=== PATIENT | female | born 1995 | race Caucasian/White ===

== ENCOUNTER → 2021-06-22 | Outpatient (CLI) | payer OTHER ==
--- NOTE | 2021-06-22 10:26 | US ---
EXAMINATION TYPE: US OB >= 14 wk fetus DATE OF EXAM: 06/22/2021 COMPARISON: None CLINICAL HISTORY: O36.62X0 LARGE FOR DATES Large for dates. . TECHNIQUE: Transabdominal (TA) GESTATIONAL AGE / DATING Physician Established: (25 weeks/0 days) EDC: 10/05/2021 Dates by LMP: Unknown. Dates by First Scan: This is first scan at this facility. Dates by Current Scan: (24 weeks/2 days) EDC: 10/10/2021 SURVEY IUP: Single PLACENTA: Anterior PREVIA: No Previa TORSTEN: 11.8 cm Normal CERVICAL LENGTH (transabdominal: norm > 3.0cm): 3.15 cm BIOMETRY PRESENTATION: Vertex LIE: Longitudinal BPD: 5.8 cm 23 weeks / 6 days HC: 22.1 cm 24 weeks / 1 day AC: 19.4 cm 24 weeks / 1 day FL: 4.4 cm 24 weeks / 4 days ESTIMATED WEIGHT IN GRAMS: 674 grams ESTIMATED WEIGHT IN LBS/OZ: 1 lb. 8 oz. WEIGHT PERCENTAGE BASED ON ESTABLISHED DATES: 13% HC/AC: 1.14 Normal FL/AC: 23% Normal HEART RATE: 150 bpm RHYTHM: Normal Single live intrauterine gestation is confirmed. Normal cephalad presentation seen. No cervical thinn ing. Estimated amniotic fluid index within normal limits. No placenta previa. biometry measurem ents concordant and within normal limits. Detailed anatomical survey not performed. IMPRESSION: As above.
== END | disposition home or self-care (01) ==
LOC: RADUSWWP 08:25
PROVIDERS: ATTEND Obstetrics & Gynecology
DX: O36.62X0 Maternal care for excessive fetal growth, second trimester, not applicable or unspecified (principal); Z3A.24 24 weeks gestation of pregnancy
CPT/HCPCS: 76805

== ENCOUNTER 2021-08-08 15:02 | Outpatient (CLI) | payer OTHER ==
[2021-08-08] MEDS: LACTATED RINGERS 1,000 ML IV SCH ×3 (15:35→17:15)
[2021-08-08] MEDS ORDERED: ACETAMINOPHEN TAB 325 MG TAB PO STA (16:34)
[2021-08-08 17:11] LABS: Appearance,Urine Clear (Clear); Bilirubin,Urine Negative (Negative); Blood,Urine Negative (Negative); Color,Urine Yellow; Glucose,Urine (UA) Negative (Negative); Leukocyte Esterase,Urine Negative (Negative); Nitrite,Urine Negative (Negative); Protein,Urine Negative (Negative); Specific Gravity,Urine 1.019 (1.001-1.035); Urobilinogen,Urine <2.0 mg/dL (<2.0)
[2021-08-08 17:23] LABS: Ketones,Urine 2+ (Negative)
--- NOTE | 2021-08-08 19:29 | US ---
EXAMINATION TYPE: US OB >= 14 wk fetus DATE OF EXAM: 08/08/2021 COMPARISON: 06/22/21 CLINICAL HISTORY: FHR variable decelerations, decreased movementCOVID positive; patient having abdomi nal pain TECHNIQUE: Transabdominal (TA) GESTATIONAL AGE / DATING Physician Established: (31 weeks/5 days) EDC: 10/05/21 Dates by First Scan: (24 weeks/2 days) EDC: 10/10/21 Dates by Current Scan: (31 weeks/0 days) EDC: 10/10/21 SURVEY IUP: Single PLACENTA: Anterior PREVIA: No Previa TORSTEN: 11.94 cm Normal CERVICAL LENGTH (transabdominal: norm > 3.0cm): 3.04 cm BIOMETRY PRESENTATION: Vertex LIE: Longitudinal BPD: 7.59 cm 32 weeks / 0 days HC: 28.94 cm 32 weeks / 0 days AC: 26.06 cm 30 weeks / 2 days FL: 5.63 cm 29 weeks / 5 days ESTIMATED WEIGHT IN GRAMS: 1547 grams ESTIMATED WEIGHT IN LBS/OZ: 3 lbs. 7 oz. WEIGHT PERCENTAGE BASED ON ESTABLISHED DATES: 8% HC/AC: 1.11 Normal FL/AC: 22% Normal HEART RATE: 158 bpm RHYTHM: Normal IMPRESSION: Single live intrauterine gestation as described above.
[2021-08-08 20:49] VITALS: BP 118/72; PULSE 117; RESP 16; TEMP 100.1
--- NOTE | 2021-08-09 04:45 | P.MSEPDOC ---
Presenting Problems - Arrival Data Date of Arrival on Unit: 08/08/21 Time of Arrival on Unit: 15:02 Mode of Transport: Portable - Complaint OB-Reason for Admission/Chief Complaint: Decreased Movement Medical History - Information : 1 Para: 0 Term: 0 : 0 Abortions: Spontaneous or Elective: 0 Number of Living Children: 0 - Gestational Age Gestational Age by MK (wks/days): 31 Weeks and 5 Days Review of Systems - Review of Systems Constitutional: Fever Breast: No problems ENT: Nasal congestion Cardiovascular: No problems Respiratory: No problems Gastrointestinal: No problems Genitourinary: No problems Musculoskeletal: No problems Neurological: No problems Skin: No problems Vital Signs - Temperature Temperature: 100.1 F Temperature Source: Oral - Pulse Right Brachial Pulse Rate: 117 Pulse Assessment Method: Automatic Cuff - Respirations Respiratory Rate: 16 Oxygen Delivery Method: Room Air O2 Sat by Pulse Oximetry: 99 - Blood Pressure Right Arm Blood Pressure: 118/72 Blood Pressure Mean: 87 Blood Pressure Source: Automatic Cuff Medical Screen Scoring - Cervical Exam Dilation (cm): 0 Effacement (%): 50 Station: -3 Membranes: Intact - Assessment - Baby A Baseline FHR: 160 Heart Rate - NICHD Category: Category II (Indeterminate) NST: Reactive Physician Notification - Physician Notified Physician Notified Date: 08/08/21 Physician Notified Time: 15:21 Physician: Dr. Farley. New Order Received: Yes - Notification Comment Comment: Dr. Farley called and given update on pt. FHT baseline remains 160bpm with accelerations present. No decelerations or contractions noted. Pt was able to eat soup and crackers and keep them down. Orders to d/c pt home. To have pt call office in am to discuss when to be seen and script for biweekly nst. Maternal Triage Index - Urgent/Priority 2 Urgent Priority 2: Yes Provider Notified: Dr. Farley Provider Notified Time: 15:21 Criteria Met for Priority 2: Decreased movement. Disposition - Disposition OB Disposition: Discharge to home Discharge Date: 08/08/21 Discharge Time: 20:30 I agree with the RN Medical Screening Exam: Yes Case reviewed; plan agreed upon as documented in EMR&OBIX.: Yes Comments: Patient received 3 bags of IV fluid due to dehydration. She was able to tolerate food and drink after fluids. During her course, she did have a period of time where she was having variable decelerations. Her cervix was closed and fibronectin was negative. Ultrasound was ordered and normal fluid was noted. After ultrasound was complete, baby was put back on the monitor and no further decelerations were noted. We did advise her to come back for twice weekly NSTs in labor and delivery due to this history of variable decelerations. She will contact Dr. Anne tomorrow to find out when he would like her to return to see him in the office. She is advised to use Tylenol as needed for fever or pain. Diagnosis: COVID-19 Additional Diagnoses: Dehydration
== END 2021-08-08 20:30 | disposition home or self-care (01) ==
LOC: FBPOP 15:02
PROVIDERS: ATTEND Obstetrics & Gynecology
DX: O98.513 Other viral diseases complicating pregnancy, third trimester (principal); O99.283 Endocrine, nutritional and metabolic diseases complicating pregnancy, third trimester; U07.1 COVID-19; E86.0 Dehydration; Z3A.31 31 weeks gestation of pregnancy
CPT/HCPCS: 59025; 76805; 81003; 82731; 87635; 96360; 96361; 99214

== ENCOUNTER 2021-08-22 10:30 | Outpatient (CLI) | payer OTHER ==
[2021-08-22] MEDS ORDERED: AMPICILLIN 2,000 MG in SODIUM CHLORIDE 0.9% 100 ML IVPB STA (11:15)
[2021-08-22] MEDS ORDERED: BETAMET ACET-BETAMETH SOD PHOS 6 MG/ML MDV IM SCH (11:15)
--- NOTE | 2021-08-22 11:25 | P.HPOB ---
History of Present Illness H&P Date: 08/22/21 Chief Complaint: PROM 26 year old presents at 33 weeks 4 days complaining of leaking fluid and some cramping. Amniosure is positive. She is not mateo on the monitor. Heart tones 140 moderate variability and reactive; category1. Of note, pt had covid about 3 weeks ago. Review of Systems All systems: negative Constitutional: Denies chills, Denies fever Eyes: denies blurred vision, denies pain Ears, nose, mouth and throat: Denies headache, Denies sore throat Cardiovascular: Denies chest pain, Denies shortness of breath Respiratory: Denies cough Gastrointestinal: Denies abdominal pain, Denies diarrhea, Denies nausea, Denies vomiting Genitourinary: Denies dysuria, Denies hematuria Musculoskeletal: Denies myalgias Integumentary: Denies pruritus, Denies rash Neurological: Denies numbness, Denies weakness Psychiatric: Denies anxiety, Denies depression Endocrine: Denies fatigue, Denies weight change Past Medical History Past Medical History: No Reported History History of Any Multi-Drug Resistant Organisms: None Reported Past Surgical History: No Surgical Hx Reported Smoking Status: Never smoker Medications and Allergies Home Medications Medication Instructions Recorded Confirmed Type Pnv No.95/Ferrous Fum/Folic AC 1 each PO DAILY 08/08/21 08/22/21 History [ Multivitamin Tablet] Allergies Allergy/AdvReac Type Severity Reaction Status Date / Time No Known Allergies Allergy Verified 08/22/21 10:57 Exam Osteopathic Statement: *. No significant issues noted on an osteopathic structural exam other than those noted in the History and Physical/Consult. Intake and Output 08/21/21 08/22/21 08/22/21 22:59 06:59 14:59 Other: Weight 56.699 kg HEart: RRR Lungs: CTAB Abdomen: soft, nontender Extremeties: neg ziyad's Assessment and Plan (1) premature rupture of membranes Current Visit: Yes Status: Acute Code(s): O42.919 - PRETRM NELDA ROM, UNSP TIME BETW RUPT AND ONST LABR, UNSP TRI SNOMED Code(s): 615434800 Plan: 1. transfer to [facility] [place] due to state.
[2021-08-22] MEDS ORDERED: LACTATED RINGERS 1,000 ML IV SCH (12:00)
[2021-08-22 13:03] VITALS: BP 126/85; PULSE 102; RESP 16; TEMP 99.4
== END 2021-08-22 12:41 ==
LOC: FBPOP 10:30
PROVIDERS: ATTEND Obstetrics & Gynecology
DX: O42.913 Preterm premature rupture of membranes, unspecified as to length of time between rupture and onset of labor, third trimester (principal); Z3A.33 33 weeks gestation of pregnancy
CPT/HCPCS: 59025; 99213; 96361; 96365; 96372; 84112; J0290; J0702